=== PATIENT | female | born 1985 | race Caucasian/White ===

== ENCOUNTER → 2018-10-12 15:11 | Outpatient (CLI) | payer OTHER, SELFPAY ==
--- NOTE | 2018-10-12 15:13 | DI.US.S_ITS ---
LIMITED ULTRASOUND OF LEFT BREAST: 10/12/2018 CLINICAL: Palpable left breast lump. No prior exams were available for comparison. Real-time ultrasound of the left breast 1 o'clock region was performed on the area of interest. No discrete cystic or solid mass identified. IMPRESSION: NEGATIVE There is no sonographic evidence of malignancy. There is no abnormality seen in the left breast to correspond with the palpable abnormality at 1 o'clock, however, clinical correlation is recommended. If clnical concern persists following delivery, further evaluation may be obtained with a diagnostic mammgoram. This exam was interpreted at Station ID: [id number]. Electronically Signed By: Miguelangel Koch M.D. ddp/:10/12/2018 16:08:45 letter sent: Clinical Evaluation Ultrasound BI-RADS: 1 Negative
== END ==
DX: O92.29 Other disorders of breast associated with pregnancy and the puerperium (principal); Z3A.23 23 weeks gestation of pregnancy
CPT/HCPCS: 76642

== ENCOUNTER → 2018-10-25 15:35 | Outpatient (CLI) | payer OTHER, SELFPAY ==
[2018-10-25 17:43] LABS: Hematocrit 32.8 % (36-46); Hemoglobin 11.2 g/dL (12.0-16.0)
[2018-10-25 18:07] LABS: GTT (PREG) 1 Hour PP 50gm Dose 135 mg/dL (76-139)
== END ==
DX: Z34.02 Encounter for supervision of normal first pregnancy, second trimester (principal); Z3A.25 25 weeks gestation of pregnancy
CPT/HCPCS: 36415; 82950; 85014; 85018

== ENCOUNTER 2018-12-05 19:36 | Outpatient (CLI) | payer OTHER, SELFPAY ==
--- NOTE | 2018-12-05 20:27 | PM.OBTRLD ---
Visit Information Visit Information Date of evaluation: 12/05/18 Primary OB Provider: Jesus Martin On-call OB Provider: Odilia Tobias Reason for Evaluation: Yes other Comments/Additional reasons for admission: Patient called the after hours line concerns about oven heater colored stools, darker urine and stretching pain around her umbilicus for that last 2-3 days. No h/o liver disease. has been uncomplicated. Patient denied itching, fevers, nausea or vomiting. She also was concerned that the baby was not moving as much but was still moving regularly. Advised patient to come to center for evaluation. [facility] Social History Smoking Status: Former smoker Social History Smoking Status: Former smoker Exam Vital Signs (past 8 hours): BP 125/80 HR 91 Evaluation Evaluation Baseline heart rate: 140 Variability: Moderate (11-25) monitor accelerations: Present monitor decelerations: Absent Category of Tracing: I Diagnosis, Plan/Disposition Final Diagnosis (1) 35 weeks gestation of : Current Visit: Yes Status: Acute Plan/Disposition Plan: 33 year old at 35 weeks gestation with the above complaints. Initial concern was for possible liver disease however patient was not painful in triage whatsoever and UA was entirely normal. Further labs were not pursued. NST was reactive. Patient had rare contractions on the monitor. Follow up as scheduled with Dr. Martin.
[2018-12-05 20:36] LABS: RBC Urine None Seen (0-5/HPF); WBC Urine None Seen (0-5/HPF)
--- NOTE | 2018-12-05 20:36 | P.TNLD_ITS ---
Visit Information Visit Information Date of evaluation: 12/05/18 Primary OB Provider: Jesus Martin On-call OB Provider: Odilia Tobias Reason for Evaluation: Yes other Comments/Additional reasons for admission: Patient called the after hours line concerns about campaign advisor colored stools, darker urine and stretching pain around her umbilicus for that last 2-3 days. No h/o liver disease. has been uncomplicated. Patient denied itching, fevers, nausea or vomiting. She also was concerned that the baby was not moving as much but was still moving regularly. Advised patient to come to center for evaluation. [facility] Social History Smoking Status: Former smoker Social History Smoking Status: Former smoker Exam Vital Signs (past 8 hours): BP 125/80 HR 91 Evaluation Evaluation Baseline heart rate: 140 Variability: Moderate (11-25) monitor accelerations: Present monitor decelerations: Absent Category of Tracing: I Diagnosis, Plan/Disposition Final Diagnosis (1) 35 weeks gestation of : Current Visit: Yes Status: Acute Plan/Disposition Plan: 33 year old at 35 weeks gestation with the above complaints. Initial concern was for possible liver disease however patient was not painful in triage whatsoever and UA was entirely normal. Further labs were not pursued. NST was reactive. Patient had rare contractions on the monitor. Follow up as scheduled with Dr. Martin.
[2018-12-05 20:37] LABS: Appearance Urine UA CLEAR; Bilirubin Urine UA NEGATIVE (NEGATIVE); Color Urine UA YELLOW; Glucose Urine UA NEGATIVE (Negative); Ketones Urine UA NEGATIVE (NEGATIVE); Leukocyte Esterase Urine UA NEGATIVE (NEGATIVE); Nitrite Urine UA NEGATIVE (Negative); Occult Blood Urine UA NEGATIVE (Negative); Protein Urine UA NEGATIVE (Negative); Urobilinogen Urine UA 0.2 E.U./dL (0.2)
[2018-12-05 20:48] LABS: Bacteria Urine Few (2-10); Culture Indicated Urine Cult Not Indicated; Squamous Epithelial Cell Urine None Seen
== END 2018-12-05 20:45 | disposition home or self-care (01) ==
LOC: OB 12-07 14:16
PROVIDERS: Visit Provider Family Medicine
DX: O26.893 Other specified pregnancy related conditions, third trimester (principal); O36.8130 Decreased fetal movements, third trimester, not applicable or unspecified; Z3A.35 35 weeks gestation of pregnancy; R10.9 Unspecified abdominal pain
CPT/HCPCS: 59025; 81001; G0378; G0379

== ENCOUNTER 2018-12-09 07:46 | Emergency (ER) | payer OTHER, SELFPAY ==
[2018-12-09 07:51] VITALS: BP 122/83; PULSE 94; RESP 20; TEMP 36.8; O2SAT 99; BMI 27.4
--- NOTE | 2018-12-09 07:58 | ED.EXTPRO ---
HPI - Extremity Problem General Chief complaint: Extremity Problem,Nontraumatic Stated complaint: R foot, stress fracture Time Seen by Provider: 12/09/18 07:56 Source: patient Mode of arrival: ambulatory Limitations: no limitations History of Present Illness HPI Narrative: Patient is a 33-year-old female who is currently 34 weeks . She has been walking or lately. over the last 3 days hurts every time she walks. she denies any injury MD Complaint: extremity pain (righ foot) Pain Consistency: intermittent (only while walking) Quality: aching Radiation: none Relieving factors: rest Exacerbating factors: nothing Related Data Home Medications Medication Instructions Recorded Confirmed folic acid 400 mcg tablet 0.4 mg PO DAILY 10/04/18 10/04/18 1 tab PO DAILY 10/04/18 10/04/18 vitamin,calcium,tuqxqzww-zrgt-youxl acid tablet Allergies Allergy/AdvReac Type Severity Reaction Status Date / Time amoxicillin Allergy Verified 08/28/18 17:10 Review of Systems Review of Systems GENERAL: Denies chills,fever HEENT: Denies throat pain RESPIRATORY: Denies dyspnea, cough, wheezing CARDIOVASCULAR: Denies chest pain, palpitations GASTROINTESTINAL: Denies nausea, vomiting MUSCULOSKELETAL: HPI SKIN: No rash, no laceration, no pruritus NEUROLOGIC: Denies weakness, dizziness, headache, numbness 8 point review of systems is negative except for those stated above and HPI PFSH Medical History (Acute) Social History Smoking Status: Former smoker Social History Smoking Status: Former smoker Exam Initial Vital Signs Initial Vital Signs: Vital Signs Temperature 98.2 F 12/09/18 07:51 Pulse Rate 94 H 12/09/18 07:51 Respiratory Rate 20 12/09/18 07:51 Blood Pressure 122/83 12/09/18 07:51 Pulse Oximetry 99 12/09/18 07:51 GENERAL: Well-appearing, well-nourished and in no acute distress. CARDIOVASCULAR: peripheral pulses in tact, cap refill <2 sec RESPIRATORY: No respiratory distress, speaks in full sentences without difficulty EXTREMITIES: Normal range of motion, no clubbing or edema. Neurovascularly intact. right foot: Tender midfoot only while walking to palpation no gross bony deformity peripheral pulses intact NEUROLOGICAL: Cranial nerves II through XII grossly intact. Normal gait and speech. SKIN: Warm, dry, no petechiae, no rashes or lesions. Course Vital Signs - 8 hr 12/09/18 07:51 Temperature 98.2 F Pulse Rate 94 H Respiratory Rate 20 Blood Pressure 122/83 Pulse Oximetry 99 MDM - Extremity (Nontraumatic) MDM Narrative Medical decision making narrative: discussed possible xray, however, she denies and specific injury and is . She has no pain at metatarsals. Discussed risks and benefits of XRAy, at this time agrees with conservative measures of resting, ifno imporvement in 1-2 weeks consider XRay. Discharge Plan Departure Patient Disposition: Home Clinical Impression: Foot pain, right Discharge Date/Time: 12/09/18 08:17 Interventions: ED Discharge Assessment Last Done: 12/09/18 08:17 Instructions: DI for Stress Fracture, November Stress Fracture Activity Restrictions/Additional Instructions: *You have been diagnosed with right foot pain, possible stress fracture *What to do: recommend resting for 1 to 2 week if still having may require x-ray *Continue to take medications as directed [and follow up with ortho, urology etc] *Return to ER if you should have increasing pain weakness, numbness, or any new, worsening or concerning symptoms Prescriptions: No Action prenat.vits,martin,gjm-oefc-tnexr tablet 1 tab PO DAILY RF: 0 folic acid 400 mcg tablet 0.4 mg PO DAILY RF: 0 Referrals: Jesus Martin MD [Family Provider] -
--- NOTE | 2018-12-09 08:06 | ED_ITS ---
HPI - Extremity Problem General Chief complaint: Extremity Problem,Nontraumatic Stated complaint: R foot, stress fracture Time Seen by Provider: 12/09/18 07:56 Source: patient Mode of arrival: ambulatory Limitations: no limitations History of Present Illness HPI Narrative: Patient is a 33-year-old female who is currently 34 weeks . She has been walking or lately. over the last 3 days hurts every time she walks. she denies any injury MD Complaint: extremity pain (righ foot) Pain Consistency: intermittent (only while walking) Quality: aching Radiation: none Relieving factors: rest Exacerbating factors: nothing Related Data Home Medications Medication Instructions Recorded Confirmed folic acid 400 mcg tablet 0.4 mg PO DAILY 10/04/18 10/04/18 1 tab PO DAILY 10/04/18 10/04/18 vitamin,calcium,glegvwqp-twoc-gqzot acid tablet Allergies Allergy/AdvReac Type Severity Reaction Status Date / Time amoxicillin Allergy Verified 08/28/18 17:10 Review of Systems Review of Systems GENERAL: Denies chills,fever HEENT: Denies throat pain RESPIRATORY: Denies dyspnea, cough, wheezing CARDIOVASCULAR: Denies chest pain, palpitations GASTROINTESTINAL: Denies nausea, vomiting MUSCULOSKELETAL: HPI SKIN: No rash, no laceration, no pruritus NEUROLOGIC: Denies weakness, dizziness, headache, numbness 8 point review of systems is negative except for those stated above and HPI PFSH Medical History (Acute) Social History Smoking Status: Former smoker Social History Smoking Status: Former smoker Exam Initial Vital Signs Initial Vital Signs: Vital Signs Temperature 98.2 F 12/09/18 07:51 Pulse Rate 94 H 12/09/18 07:51 Respiratory Rate 20 12/09/18 07:51 Blood Pressure 122/83 12/09/18 07:51 Pulse Oximetry 99 12/09/18 07:51 GENERAL: Well-appearing, well-nourished and in no acute distress. CARDIOVASCULAR: peripheral pulses in tact, cap refill <2 sec RESPIRATORY: No respiratory distress, speaks in full sentences without difficulty EXTREMITIES: Normal range of motion, no clubbing or edema. Neurovascularly intact. right foot: Tender midfoot only while walking to palpation no gross bony deformity peripheral pulses intact NEUROLOGICAL: Cranial nerves II through XII grossly intact. Normal gait and speech. SKIN: Warm, dry, no petechiae, no rashes or lesions. Course Vital Signs - 8 hr 12/09/18 07:51 Temperature 98.2 F Pulse Rate 94 H Respiratory Rate 20 Blood Pressure 122/83 Pulse Oximetry 99 MDM - Extremity (Nontraumatic) MDM Narrative Medical decision making narrative: discussed possible xray, however, she denies and specific injury and is . She has no pain at metatarsals. Discussed risks and benefits of XRAy, at this time agrees with conservative measures of resting, ifno imporvement in 1-2 weeks consider XRay. Discharge Plan Departure Patient Disposition: Home Clinical Impression: Foot pain, right Discharge Date/Time: 12/09/18 08:17 Interventions: ED Discharge Assessment Last Done: 12/09/18 08:17 Instructions: DI for Stress Fracture, November Stress Fracture Activity Restrictions/Additional Instructions: *You have been diagnosed with right foot pain, possible stress fracture *What to do: recommend resting for 1 to 2 week if still having may require x- ray *Continue to take medications as directed [and follow up with ortho, urology etc] *Return to ER if you should have increasing pain weakness, numbness, or any new, worsening or concerning symptoms Prescriptions: No Action prenat.vits,martin,nvd-fsid-plpmm tablet 1 tab PO DAILY RF: 0 folic acid 400 mcg tablet 0.4 mg PO DAILY RF: 0 Referrals: Jesus aMrtin MD [Family Provider] -
== END 2018-12-09 08:17 | disposition home or self-care (01) ==
PROVIDERS: Emergency Provider Emergency Medicine
DX: M79.671 Pain in right foot (principal); Z33.1 Pregnant state, incidental; Z3A.34 34 weeks gestation of pregnancy
CPT/HCPCS: 99282

== ENCOUNTER → 2018-12-17 10:19 | Outpatient (CLI) | payer OTHER, SELFPAY ==
[2018-12-18 15:14] LABS: Strep Grp B PCR NEG for Grp B Strep
== END ==
DX: Z34.03 Encounter for supervision of normal first pregnancy, third trimester (principal); Z3A.35 35 weeks gestation of pregnancy
CPT/HCPCS: 87653

== ENCOUNTER 2019-01-11 12:45 | Outpatient (CLI) | payer OTHER, SELFPAY ==
--- NOTE | 2019-01-11 18:16 | PM.OBTRLD ---
Visit Information Visit Information Date of evaluation: 01/11/19 Primary OB Provider: Jesus Martin On-call OB Provider: Magalie Roa Reason for Evaluation: Yes non-stress test non-stress test reason: other (Grade 3 placenta) [facility] Social History Smoking Status: Former smoker Evaluation Evaluation Baseline heart rate: 135 Variability: Moderate (11-25) monitor accelerations: Present monitor decelerations: Absent Category of Tracing: I Diagnosis, Plan/Disposition Final Diagnosis (1) 39 weeks gestation of : Current Visit: Yes Status: Acute Plan/Disposition Plan: Assessment: 33-year-old 1 para 0 at 38-,6/7 weeks gestation with a grade 3 placenta Category 1 nonstress test Plan: Follow-up 1 week [facility] Disposition: home
--- NOTE | 2019-01-11 18:19 | P.TNLD_ITS ---
Visit Information Visit Information Date of evaluation: 01/11/19 Primary OB Provider: Jesus Martin On-call OB Provider: Magalie Roa Reason for Evaluation: Yes non-stress test non-stress test reason: other (Grade 3 placenta) [facility] Social History Smoking Status: Former smoker Evaluation Evaluation Baseline heart rate: 135 Variability: Moderate (11-25) monitor accelerations: Present monitor decelerations: Absent Category of Tracing: I Diagnosis, Plan/Disposition Final Diagnosis (1) 39 weeks gestation of : Current Visit: Yes Status: Acute Plan/Disposition Plan: Assessment: 33-year-old 1 para 0 at 38-,6/7 weeks gestation with a grade 3 placenta Category 1 nonstress test Plan: Follow-up 1 week [facility] Disposition: home
== END 2019-01-11 14:10 | disposition home or self-care (01) ==
LOC: LABOR 12:48 → OB 01-13 10:52
DX: O26.893 Other specified pregnancy related conditions, third trimester (principal); Z3A.39 39 weeks gestation of pregnancy
CPT/HCPCS: 59025; G0378; G0379

== ENCOUNTER 2019-01-14 06:50 | Outpatient (CLI) | payer OTHER, SELFPAY | END 2019-01-14 10:00 | disposition home or self-care (01) | LOC: LABOR 07:37 → OB 01-18 06:56 | PROVIDERS: Visit Provider Obstetrics & Gynecology | DX: O26.893 Other specified pregnancy related conditions, third trimester (principal); Z3A.38 38 weeks gestation of pregnancy | CPT/HCPCS: 59025; 59050; G0378; G0379 ==